=== PATIENT | female | born 1970 | race American Indian/Alaskan Native ===

== ENCOUNTER 2018-11-16 11:11 | Outpatient (CLI) | payer OTHER ==
--- NOTE | 2018-11-16 13:51 | Mammography Report ---
BILATERAL DIGITAL SCREENING MAMMOGRAM WITH CAD INDICATION: Baseline Screening. COMPARISONS: None. FINDINGS: Craniocaudal and mediolateral oblique views of both breasts were obtained using 2-D digital acquisition. In addition to standard review, the examination was analyzed for possible abnormalities using a computer-assisted detection device (iCAD). The breast tissue is heterogeneously dense, which may obscure small masses. Left asymmetries and architectural distortion requiring additional imaging. No suspicious calcificati ons. The right breast is negative. IMPRESSION: Left asymmetries with architectural distortion requiring additional imaging. Recommend recall for lef t lateral medial, rolled CC and spot compression CC views and left breast ultrasound if needed. BI-RADS CATEGORY 0: INCOMPLETE - NEED ADDITIONAL IMAGING EVALUATION AND/OR PRIOR MAMMOGRAMS FOR COMP ARISON Information is entered into a reminder system for a target due date for the next mammogram. The resul ts and recommendations were sent to the patient by mail. Signer Name: Donavan Garrido MD Signed: 11/16/2018 1:47 PM Workstation Name: [id number]
== END 2018-11-16 11:12 | disposition home or self-care (01) ==
LOC: MAMMO 11:11
PROVIDERS: ATTEND Family Medicine
DX: Z12.31 Encounter for screening mammogram for malignant neoplasm of breast (principal)
CPT/HCPCS: 77067

== ENCOUNTER 2018-11-30 08:44 | Outpatient (CLI) | payer OTHER ==
--- NOTE | 2018-12-05 09:04 | Mammography Report ---
LEFT DIGITAL DIAGNOSTIC MAMMOGRAM WITHOUT CAD LEFT COMPLETE BREAST ULTRASOUND INDICATION: Recalled for asymmetries. TECHNIQUE: Digital left mammographic imaging was performed. COMPARISON: 11/16/2018 FINDINGS: Breast Density: The breast is heterogeneously dense, which may obscure small masses. Additional left mammographic views were performed and are negative. Ultrasound Findings: Complete sonographic evlauation of all 4 quadrants and retroareolar region was p erformed. Note that the images from 11/30/2018 included only the outer breast. A benign cyst at 1:00 4 cm from the nipple measures 5 x 4 x 7 mm and a benign cyst at 3:00 5 cm from the nipple measures 5 x 3 x 6 mm. The patient returned on 12/04/2018 and the inner left breast was scanned. No solid mass or suspicious shadowing. IMPRESSION: Negative mammogram and a few benign cysts. BI-RADS Category 2: Benign. Recommend routine screening mammography in one year A "normal" or negative report should not discourage follow up or biopsy of a clinically significant f inding. A written summary of these findings will be mailed to the patient. The patient will be entered into a mammography reporting system which will generate a reminder letter for the patient's next appointmen t at the appropriate interval. FURTHER INFORMATION: According to the [employer], yearly mammograms are recommend ed starting at age 40 and continuing as long as a woman is in good health. Breast MRI is recommended for women with an approximately 20-25% or greater lifetime risk of breast cancer, including women wi th a strong family history of breast or ovarian cancer and women who have been treated for Hodgkin's disease. Signer Name: Donavan Garrido MD Signed: 12/05/2018 8:59 AM Workstation Name: [id number]
== END 2018-11-30 08:45 | disposition home or self-care (01) ==
LOC: MAMMO 08:44
PROVIDERS: ATTEND Family Medicine
DX: N60.01 Solitary cyst of right breast (principal); N60.02 Solitary cyst of left breast

== ENCOUNTER 2019-11-29 11:19 | Outpatient (CLI) | payer OTHER ==
--- NOTE | 2019-11-30 09:41 | Mammography Report ---
DIGITAL SCREENING MAMMOGRAM WITH CAD, 11/29/2019 INDICATION: Routine screening mammography. SCREENING MAMMO TECHNIQUE: Digital bilateral 2D mammography was obtained in the craniocaudal and mediolateral obliq ue projections. This examination was interpreted with the benefit of Computer-Aided Detection analysi s. COMPARISON: 11/16/2018 FINDINGS: Breast Density: The breasts are heterogeneously dense, which may obscure small masses. There is no evidence of dominant mass, suspicious calcifications or architectural distortion in eithe r breast. IMPRESSION: No evidence of malignancy Follow up recommendation: Routine yearly BI-RADS Category 1: Negative. A "normal" or negative report should not discourage follow up or biopsy of a clinically significant f inding. A written summary of these findings will be mailed to the patient. The patient will be entered into a mammography reporting system which will generate a reminder letter for the patient's next appointmen t at the appropriate interval. The [employer] recommends yearly mammograms starting at age 40 and continuing as l slime as a woman is in good health. Breast MRI is recommended for women with an approximate 20-25% or greater lifetime risk of breast cancer, including women with a strong family history of breast or ova sola cancer or who have been treated for Hodgkin's disease. Signer Name: Roberto Carlos Deluca MD Signed: 11/30/2019 9:37 AM Workstation Name: [id number]
== END 2019-11-29 11:20 | disposition home or self-care (01) ==
LOC: MAMMO 11:19
PROVIDERS: ATTEND Family Medicine
DX: Z12.31 Encounter for screening mammogram for malignant neoplasm of breast (principal)
CPT/HCPCS: 77067

== ENCOUNTER 2020-12-24 10:00 | Outpatient (CLI) | payer OTHER ==
--- NOTE | 2020-12-24 12:42 | Mammography Report ---
DIGITAL SCREENING MAMMOGRAM WITH CAD, 12/24/2020 CLINICAL INFORMATION / INDICATION: Routine screening mammography. SCRN MAMMO TECHNIQUE: Digital bilateral 2D mammography was obtained in the craniocaudal and mediolateral obliqu e projections. This examination was interpreted with the benefit of Computer-Aided Detection analysis . COMPARISON: 11/16/2018 and 11/29/2019. FINDINGS: Breast Density: The breasts are heterogeneously dense, which may obscure small masses. No dominant mass, suspicious calcifications, or architectural distortion in either breast. IMPRESSION: No mammographic evidence of malignancy. Follow up recommendation: Routine yearly BI-RADS Category 1: Negative. A "normal" or negative report should not discourage follow up or biopsy of a clinically significant f inding. A written summary of these findings will be mailed to the patient. The patient will be entered into a mammography reporting system which will generate a reminder letter for the patient's next appointmen t at the appropriate interval. The [employer] recommends yearly mammograms starting at age 40 and continuing as l slime as a woman is in good health. Breast MRI is recommended for women with an approximate 20-25% or greater lifetime risk of breast cancer, including women with a strong family history of breast or ova sola cancer or who have been treated for Hodgkin's disease. Signer Name: Dallin Guo MD Signed: 12/24/2020 12:37 PM Workstation Name: [id number]
== END 2020-12-24 10:01 | disposition home or self-care (01) ==
LOC: MAMMO 10:00
PROVIDERS: ATTEND Family Medicine
DX: Z12.31 Encounter for screening mammogram for malignant neoplasm of breast (principal); N64.89 Other specified disorders of breast
CPT/HCPCS: 77067